=== PATIENT | female | born 1950 | race Caucasian/White ===

== ENCOUNTER → 2017-11-16 | Outpatient (CLI) | payer BC ==
[~2017-11-16] MED LIST: LEVO125T5 PO; LORA1TAB PO; OXYC20TA2 PO; OXYM40TA13 PO; RABE20TA18 PO
== END | disposition home or self-care (01) ==
LOC: CFH 09:38
PROVIDERS: ATTEND Family Medicine
DX: Z13.820 Encounter for screening for osteoporosis (principal); M85.89 Other specified disorders of bone density and structure, multiple sites; E03.9 Hypothyroidism, unspecified; Z87.311 Personal history of (healed) other pathological fracture
CPT/HCPCS: 77080